=== PATIENT | male | born 1965 | race Caucasian/White ===

== ENCOUNTER → 2017-11-23 07:14 | Emergency (ER) | payer SELFPAY ==
[~2017-11-23 07:14] MED LIST: Albuterol/Ipratropium NEB.SOL* Albuterol 2.5 MG/Ipratropium 0.5 MG 3 ML ONE; PPD test dose* 5 TU/0.1 ML TEST (*USE PPD ORDER SET*) ONE
== END | disposition home or self-care (01) ==
LOC: OHCORT 07:14
DX: Z02.1 Encounter for pre-employment examination (principal)
CPT/HCPCS: A9270-GY

== ENCOUNTER → 2017-11-25 08:57 | Emergency (ER) | payer SELFPAY | END | disposition home or self-care (01) | LOC: OHCORT 08:57 | DX: R76.11 Nonspecific reaction to tuberculin skin test without active tuberculosis (principal) ==